=== PATIENT | female | born 1970 | race Caucasian/White ===

== ENCOUNTER 2023-03-25 11:36 | Observation (INO) | payer BC ==
[2023-03-25] MEDS ORDERED: SODIUM CHLORIDE 0.9% 500 ML 500 ML IV STA (11:42)
--- NOTE | 2023-03-25 11:51 | ED ---
General Adult HPI - General Stated complaint: chest pain Time Seen by Provider: 03/25/23 11:40 Source: patient, RN notes reviewed, old records reviewed - History of Present Illness Initial comments: This is a 52-year-old female who presents emergency department after having been to the primary medical care doctor. Patient comes in because she started experiencing chest pain in the center of her chest that radiates to her back per patient states it does hurt to deep breath and she thinks touching the area also makes her. Patient does describe it as a sharp pain but is been constant since she woke up this morning at 7:30. Patient denies any fever chills or cough. Patient denies abdominal pain patient denies any nausea vomiting diarrhea. Patient has lightheadedness or dizziness. Patient denies any dysuria hematuria urinary frequency. Patient denies swelling of the legs or calf tenderness - Related Data Home Medications Medication Instructions Recorded Confirmed Lipase/Protease/Amylase [Sarah Dr 3 cap PO TID-W/MEALS 03/25/23 03/25/23 36,000 Unit Capsule] amLODIPine [Norvasc] 10 mg PO DAILY 03/25/23 03/25/23 Allergies Allergy/AdvReac Type Severity Reaction Status Date / Time bee venom protein (honey bee) Allergy Anaphylaxis Verified 03/25/23 12:34 morphine Allergy MELVIN & Verified 03/25/23 12:34 Vomiting Review of Systems ROS Statement: Those systems with pertinent positive or pertinent negative responses have been documented in the HPI. ROS Other: All systems not noted in ROS Statement are negative. General Exam - General Exam Comments Initial Comments: GENERAL: Patient is well-developed and well-nourished. Patient is nontoxic and well- hydrated and is in mild distress. ENT: Neck is soft and supple. No significant lymphadenopathy is noted. Oropharynx is clear. Moist mucous membranes. Neck has full range of motion without eliciting any pain. EYES: The sclera were anicteric and conjunctiva were pink and moist. Extraocular movements were intact and pupils were equal round and reactive to light. Eyelids were unremarkable. PULMONARY: Unlabored respirations. Good breath sounds bilaterally. No audible rales rhonchi or wheezing was noted. CARDIOVASCULAR: There is a regular rate and rhythm without any murmurs gallops or rubs. Chest pain is reproducible. ABDOMEN: Soft and nontender with normal bowel sounds. SKIN: Skin is clear with no lesions or rashes and otherwise unremarkable. NEUROLOGIC: Patient is alert and oriented x3. Cranial nerves II through XII are grossly intact. Motor and sensory are also intact. Normal speech, volume and content. Symmetrical smile. MUSCULOSKELETAL: Normal extremities with adequate strength and full range of motion. LYMPHATICS: No significant lymphadenopathy is noted PSYCHIATRIC: Normal psychiatric evaluation. Course Vital Signs 03/25/23 03/25/23 11:38 11:44 Temperature 99.1 F Pulse Rate 107 H Respiratory 18 Rate Blood Pressure 171/98 O2 Sat by Pulse 97 96 Oximetry Medical Decision Making - Medical Decision Making EKG shows sinus tachycardia at 101 bpm AL interval 200 QRS is under 2 QT interval 348 QTC is 406. Patient has Q waves in inferior leads II, III, and F aVF there is no ST segment elevation. Was pt. sent in by a medical professional or institution (TIFFANY Raygoza, FRONT DESK ADMINISTRATOR, urgent care, hospital, or residential...) When possible be specific @ -Primary care center and to the hospital Did you speak to anyone other than the patient for history (EMS, parent, family, police, friend...)? What history was obtained from this source @ -I spoke with the physician election assistant at the primary care's office Did you review nursing and triage notes (agree or disagree)? Why? @ -[I reviewed and agree with nursing and triage notes] Were old charts reviewed (outside hosp., previous admission, EMS record, old EKG, old radiological studies, urgent care reports/EKG's, residential records)? Report findings @ -[No old charts were reviewed] Differential Diagnosis (chest pain, altered mental status, abdominal pain women, abdominal pain men, vaginal bleeding, weakness, fever, dyspnea, syncope, headache, dizziness, GI bleed, back pain, seizure, CVA, palpatations, mental health, musculoskeletal)? @ -Differential Chest Pain: Stable Angina, Unstable Angina, STEMI, NSTEMI Aortic Dissection, Pneumothorax, Musculoskeletal, Esophageal Spasm GERD, Cholecystitis, Pancreatitis, Zoster, this is not meant to be an all-inclusive list. EKG interpreted by me (3pts min.). @ -[As above] X-rays interpreted by me (1pt min.). @ -X-ray showed no acute abnormality CT interpreted by me (1pt min.). @ -[None done] U/S interpreted by me (1pt. min.). @ -[None done] What testing was considered but not performed or refused? (CT, X-rays, U/S, labs)? Why? @ -I considered doing a CT of the chest however patient's d-dimer was normal and she was not tachycardic while in the emergency department and her chest pain was reproducible. What meds were considered but not given or refused? Why? @ -[None] Did you discuss the management of the patient with other professionals (professionals i.e. , PA, FRONT DESK ADMINISTRATOR, lab, RT, psych nurse, outreach and education social worker, carriage dogger, teacher, radiation officer, case preparer and liner)? Give summary @ -I spoke with some physicians and they agreed to admit the patient admitted the patient wrote admitting orders Was smoking cessation discussed for >3mins.? @ -[No] Was critical care preformed (if so, how long)? @ -[No] Were there social determinants of health that impacted care today? How? (Homelessness, low income, unemployed, alcoholism, drug addiction, transportation, low edu. Level, literacy, decrease access to med. care, [facility], rehab)? @ -[No] Was there de-escalation of care discussed even if they declined (Discuss DNR or withdrawal of care, Hospice)? DNR status @ -[No] What co-morbidities impacted this encounter? (DM, HTN, Smoking, COPD, CAD, Cancer, CVA, ARF, Chemo, Hep., AIDS, mental health diagnosis, sleep apnea, morbid obesity)? @ -Hypertension Was patient admitted / discharged? Hospital course, mention meds given and route, prescriptions, significant lab abnormalities, going to OR and other pertinent info. @ -Patient continued to experience sharp chest pain that was reproducible in the emergency department. Patient's EKG did show Q waves in the inferior leads but the troponin was negative at this time. I spoke with some physicians agreed to admit the patient admitted the patient I consult cardiology and they ordered an echocardiogram Undiagnosed new problem with uncertain prognosis? @ -[No] Drug Therapy requiring intensive monitoring for toxicity (Heparin, Nitro, Insulin, Cardizem)? @ -[No] Were any procedures done? @ -[No] Diagnosis/symptom? @ -Chest pain Acute, or Chronic, or Acute on Chronic? @ -Acute Uncomplicated (without systemic symptoms) or Complicated (systemic symptoms)? @ -Complicated Side effects of treatment? @ -[No] Exacerbation, Progression, or Severe Exacerbation? @ -[No] Poses a threat to life or bodily function? How? (Chest pain, USA, MS, pneumonia, PE, COPD, DKA, ARF, appy, cholecystitis, CVA, Diverticulitis, Homicidal, Suicidal, threat to staff... and all critical care pts) @ -Yes this could lead to an MS to poor perfusion and end organ dysfunction - Lab Data Result diagrams: 03/25/23 11:52 03/25/23 11:52 Lab Results 03/25/23 03/25/23 03/25/23 Range/Units 11:52 11:52 11:52 WBC 17.0 H (3.8-10.6) k/uL RBC 4.76 (3.80-5.40) m/uL Hgb 12.8 (11.4-16.0) gm/dL Hct 38.5 (34.0-46.0) % MCV 80.9 (80.0-100.0) fL MCH 27.0 (25.0-35.0) pg MCHC 33.3 (31.0-37.0) g/dL RDW 13.8 (11.5-15.5) % Plt Count 313 (150-450) k/uL MPV 7.7 Neutrophils % 83 % Lymphocytes % 10 % Monocytes % 4 % Eosinophils % 2 % Basophils % 0 % Neutrophils # 14.1 H (1.3-7.7) k/uL Lymphocytes # 1.7 (1.0-4.8) k/uL Monocytes # 0.7 (0-1.0) k/uL Eosinophils # 0.3 (0-0.7) k/uL Basophils # 0.1 (0-0.2) k/uL PT 9.5 (9.0-12.0) sec INR 0.9 (<1.2) APTT 24.8 (22.0-30.0) sec D-Dimer 0.35 (<0.60) mg/L FEU Sodium 136 L (137-145) mmol/L Potassium 3.3 L (3.5-5.1) mmol/L Chloride 103 (98-107) mmol/L Carbon Dioxide 25 (22-30) mmol/L Anion Gap 8 mmol/L BUN 9 (7-17) mg/dL Creatinine 0.55 (0.52-1.04) mg/dL Est GFR (CKD-EPI)AfAm >90 (>60 ml/min/1.73 sqM) Est GFR (CKD-EPI)NonAf >90 (>60 ml/min/1.73 sqM) Glucose 100 H (74-99) mg/dL Calcium 9.0 (8.4-10.2) mg/dL Magnesium 2.0 (1.6-2.3) mg/dL Total Bilirubin 0.5 (0.2-1.3) mg/dL AST 21 (14-36) U/L ALT 15 (4-34) U/L Alkaline Phosphatase 92 (38-126) U/L Troponin I (0.000-0.034) ng/mL Total Protein 7.2 (6.3-8.2) g/dL Albumin 4.2 (3.5-5.0) g/dL Lipase 47 (23-300) U/L Influenza Type A (PCR) (Not Detectd) Influenza Type B (PCR) (Not Detectd) RSV (PCR) (Not Detectd) SARS-CoV-2 (PCR) (Not Detectd) 03/25/23 03/25/23 Range/Units 11:52 11:52 WBC (3.8-10.6) k/uL RBC (3.80-5.40) m/uL Hgb (11.4-16.0) gm/dL Hct (34.0-46.0) % MCV (80.0-100.0) fL MCH (25.0-35.0) pg MCHC (31.0-37.0) g/dL RDW (11.5-15.5) % Plt Count (150-450) k/uL MPV Neutrophils % % Lymphocytes % % Monocytes % % Eosinophils % % Basophils % % Neutrophils # (1.3-7.7) k/uL Lymphocytes # (1.0-4.8) k/uL Monocytes # (0-1.0) k/uL Eosinophils # (0-0.7) k/uL Basophils # (0-0.2) k/uL PT (9.0-12.0) sec INR (<1.2) APTT (22.0-30.0) sec D-Dimer (<0.60) mg/L FEU Sodium (137-145) mmol/L Potassium (3.5-5.1) mmol/L Chloride (98-107) mmol/L Carbon Dioxide (22-30) mmol/L Anion Gap mmol/L BUN (7-17) mg/dL Creatinine (0.52-1.04) mg/dL Est GFR (CKD-EPI)AfAm (>60 ml/min/1.73 sqM) Est GFR (CKD-EPI)NonAf (>60 ml/min/1.73 sqM) Glucose (74-99) mg/dL Calcium (8.4-10.2) mg/dL Magnesium (1.6-2.3) mg/dL Total Bilirubin (0.2-1.3) mg/dL AST (14-36) U/L ALT (4-34) U/L Alkaline Phosphatase (38-126) U/L Troponin I <0.012 (0.000-0.034) ng/mL Total Protein (6.3-8.2) g/dL Albumin (3.5-5.0) g/dL Lipase (23-300) U/L Influenza Type A (PCR) Not Detected (Not Detectd) Influenza Type B (PCR) Not Detected (Not Detectd) RSV (PCR) Not Detected (Not Detectd) SARS-CoV-2 (PCR) Not Detected (Not Detectd) Disposition Clinical Impression: Chest pain Disposition: ADMITTED IP TO THIS [facility] Referrals: Nonstaff,Physician [Primary Care Provider] - 1-2 days Time of Disposition: 13:28
[2023-03-25 12:03] LABS: Basophils # (A) 0.1 k/uL (0-0.2); Basophils % (A) 0 %; Eosinophils # (A) 0.3 k/uL (0-0.7); Eosinophils % (A) 2 %; HCT 38.5 % (34.0-46.0); HGB 12.8 gm/dL (11.4-16.0); Lymphocytes # (A) 1.7 k/uL (1.0-4.8); Lymphocytes % (A) 10 %; MCHC 33.3 g/dL (31.0-37.0); MCV 80.9 fL (80.0-100.0); Mean Platelet Volume 7.7; Monocytes # (A) 0.7 k/uL (0-1.0); Monocytes % (A) 4 %; Neutrophils # (A) 14.1 k/uL (1.3-7.7); Neutrophils % (A) 83 %; Platelet Count 313 k/uL (150-450); RBC 4.76 m/uL (3.80-5.40); RDW 13.8 % (11.5-15.5)
[2023-03-25 12:11] LABS: ALT 15 U/L (4-34); AST 21 U/L (14-36); African American GFR (CKD) >90 (>60 ml/min/1.73 sqM); Albumin 4.2 g/dL (3.5-5.0); Alkaline Phosphatase 92 U/L (38-126); Anion Gap 8 mmol/L; Blood Urea Nitrogen 9 mg/dL (7-17); Carbon Dioxide 25 mmol/L (22-30); Chloride 103 mmol/L (98-107); Glucose 100 mg/dL (74-99); Lipase 47 U/L (23-300); Non-African American GFR(CKD) >90 (>60 ml/min/1.73 sqM); Potassium 3.3 mmol/L (3.5-5.1); Sodium 136 mmol/L (137-145); Total Bilirubin 0.5 mg/dL (0.2-1.3); Total Protein 7.2 g/dL (6.3-8.2)
[2023-03-25 12:12] LABS: INR 0.9 (<1.2); Partial Thromboplastin Time 24.8 sec (22.0-30.0); Prothrombin Time 9.5 sec (9.0-12.0)
--- NOTE | 2023-03-25 12:17 | XR ---
EXAMINATION TYPE: XR chest 2V DATE OF EXAM: 03/25/2023 COMPARISON: NONE HISTORY: Chest pain TECHNIQUE: Frontal and lateral views of the chest are obtained. FINDINGS: There is no focal air space opacity, pleural effusion, or pneumothorax seen. The cardiac silhouette size is within normal limits. The osseous structures are intact. IMPRESSION: No acute cardiopulmonary process.
[2023-03-25] MEDS ORDERED: ACETAMINOPHEN TAB 325 MG TAB PO PRN (16:56)
[2023-03-25] MEDS ORDERED: POTASSIUM CHLORIDE ER 20 MEQ TAB.ER PO STA (16:56)
[2023-03-25] MEDS: LIPASE 20,000/PROTEASE 63,000/AMYLASE 84,000 PO SCH (17:01)
[2023-03-25] MEDS: NITROGLYCERIN SL TABS 0.4 MG TAB SUBLINGUAL PRN ×4 (17:01→20:54)
--- NOTE | 2023-03-25 17:49 | P.HPIM ---
History of Present Illness H&P Date: 03/25/23 Chief Complaint: Chest pain 52-year-old woman with medical history of hypertension, pancreatic insufficiency presented for chest pain. Patient says that she started to develop sharp sided chest pain that woke her up from sleep this morning at 7 in the morning. She says that she has radiation to the jaw as well as to the back of the head. She describes the pain as sharp in nature, cannot identify any exacerbating or alleviating symptoms. She denies fevers, chills. She does report nausea, but no emesis. She denies diaphoresis. She denies palpitations, syncope, pre syncope, cough. She reports associated dyspnea. She denies abdominal pain, constipation, diarrhea, dysuria, dyschezia, numbness/weakness of extremities. In the emergency room, patient was afebrile, 171/98, heart rate 107, 97% on room air. CBC demonstrates leukocytosis to 17, otherwise unremarkable. Basic metabolic panel shows sodium of 136, potassium of 3.3. Liver function tests are unremarkable. Lipase is 47. Troponin was some 0.012. Coags are unremarkable. D-dimer is 0.35. Inflows A, B, RSV, Covid are negative. EKG shows sinus tachycardia. T-wave inversions in lead 3, v6. Chest x-ray shows normal-sized heart with clear parenchyma. Case was discussed with emergency room provider decision was made to put the patient observation for chest pain. All Systems reviewed and pertinent positives and negatives noted in HPI, all other symptoms are negative Gen: in no apparent distress, resting comfortably in bed Eyes: PERRL, no scleral injection or icterus HENT: normocephalic, atraumatic, good hearing acuity, moist mucous membranes Neck: no tracheal deviation, full range of motion Resp: good air exchange, breathing comfortably with no accessory muscle use, no tactile fremitus, clear to auscultation bilaterally CVS: good distal perfusion x 4, no pitting edema, tachycardia without murmurs GI: soft, NTTP, ND, no hepatosplenomegaly : no suprapubic tenderness, no CVAT, wilkins catheter not present MSK: no clubbing, no cyanosis, no noted contractures of extremities Skin: no noted rashes, petechiae; temperature of skin is appropriate Neuro: moving all extremities without signs of weakness, CN II-XII intact Psych: cooperative, euthymic mood, insight and judgment intact Labs and imaging as above Assessment: Chest pain Hypertension Pancreatic insufficiency Plan: Vital signs reviewed and noted in the HPI Lab work reviewed and noted in the HPI EKG and CXR are personally interpreted and noted in the HPI Case was discussed with the Emergency Room provider and decision was made to admit the patient for chest pain Aspirin 81 mg daily Atorvastatin 80 mg at bedtime A1c, TSH, lipid panel Echocardiogram ordered Cardiology consulted Nitro 0.4 mg sublingual to try minutes when necessary Past Medical History Past Medical History: Hypertension Additional Past Medical History / Comment(s): Lupus, EPI History of Any Multi-Drug Resistant Organisms: None Reported, ESBL Date of last positivie culture/infection: 01/04/2023 MDRO Source:: E.Coli in urine Past Surgical History: Cholecystectomy Additional Past Surgical History / Comment(s): Mass removed from left nipple and right side of the neck. Past Anesthesia/Blood Transfusion Reactions: No Reported Reaction Past Psychological History: No Psychological Hx Reported Smoking Status: Never smoker Past Drug Use History: None Reported Medications and Allergies Home Medications Medication Instructions Recorded Confirmed Type Lipase/Protease/Amylase [Sarah Benites 3 cap PO TID-W/MEALS 03/25/23 03/25/23 History 36,000 Unit Capsule] amLODIPine [Norvasc] 10 mg PO DAILY 03/25/23 03/25/23 History Allergies Allergy/AdvReac Type Severity Reaction Status Date / Time bee venom protein (honey bee) Allergy Anaphylaxis Verified 03/25/23 12:34 morphine Allergy MELVIN & Verified 03/25/23 12:34 Vomiting Physical Exam Osteopathic Statement: *. No significant issues noted on an osteopathic structural exam other than those noted in the History and Physical/Consult. Vitals: Vital Signs Temp Pulse Pulse Resp BP BP Pulse Ox 03/25/23 15:54 98.2 F 100 18 155/79 97 03/25/23 15:01 98.8 F 100 19 145/69 96 03/25/23 11:44 96 03/25/23 11:38 99.1 F 107 H 18 171/98 97 Intake and Output 03/25/23 03/25/23 03/25/23 06:59 14:59 22:59 Other: Weight 48.534 kg 48.534 kg Results CBC & Chem 7: 03/25/23 11:52 03/25/23 11:52 Labs: Abnormal Lab Results - Last 24 Hours (Table) 03/25/23 03/25/23 Range/Units 11:52 11:52 WBC 17.0 H (3.8-10.6) k/uL Neutrophils # 14.1 H (1.3-7.7) k/uL Sodium 136 L (137-145) mmol/L Potassium 3.3 L (3.5-5.1) mmol/L Glucose 100 H (74-99) mg/dL Thrombosis Risk Factor Assmnt - Choose All That Apply Any of the Below Risk Factors Present?: Yes Each Factor Represents 1 point: Age 41-60 years Thrombosis Risk Factor Assessment Total Risk Factor Score: 1 Thrombosis Risk Factor Assessment Level: Low Risk
[2023-03-25] MEDS ORDERED: NITROGLYCERIN OINT 1 INCH/GM PACKET TOPICAL SCH (18:00)
[2023-03-25] MEDS ORDERED: ATORVASTATIN 80 MG TAB PO SCH (21:00)
[2023-03-25] MEDS ORDERED: HYDROmorphone 0.5 MG/0.5 ML SYRINGE IVP STA (22:05)
[2023-03-26] MEDS: LIPASE 20,000/PROTEASE 63,000/AMYLASE 84,000 PO SCH ×3 (06:31→17:08)
[2023-03-26] MEDS ORDERED: amLODIPine 10 MG TAB PO SCH (09:00)
[2023-03-26] MEDS ORDERED: ASPIRIN 81 MG PO SCH (09:00)
[2023-03-26] MEDS ORDERED: ASPIRIN 325 MG TAB PO SCH (09:00)
[2023-03-26 11:46] LABS: Basophils % (A) 0 %; Eosinophils # (A) 0.2 k/uL (0-0.7); Eosinophils % (A) 2 %; HCT 39.1 % (34.0-46.0); HGB 12.5 gm/dL (11.4-16.0); Lymphocytes # (A) 1.8 k/uL (1.0-4.8); Lymphocytes % (A) 13 %; MCH 26.6 pg (25.0-35.0); MCHC 31.8 g/dL (31.0-37.0); MCV 83.6 fL (80.0-100.0); Mean Platelet Volume 8.4; Monocytes # (A) 0.8 k/uL (0-1.0); Monocytes % (A) 6 %; Neutrophils # (A) 10.6 k/uL (1.3-7.7); Neutrophils % (A) 78 %; Platelet Count 307 k/uL (150-450); RBC 4.68 m/uL (3.80-5.40); RDW 13.9 % (11.5-15.5); WBC 13.7 k/uL (3.8-10.6)
[2023-03-26 11:55] LABS: African American GFR (CKD) >90 (>60 ml/min/1.73 sqM); Anion Gap 12 mmol/L; Blood Urea Nitrogen 11 mg/dL (7-17); Calcium 8.8 mg/dL (8.4-10.2); Carbon Dioxide 24 mmol/L (22-30); Chloride 100 mmol/L (98-107); Glucose 83 mg/dL (74-99); Magnesium 2.3 mg/dL (1.6-2.3); Non-African American GFR(CKD) >90 (>60 ml/min/1.73 sqM); Potassium 3.7 mmol/L (3.5-5.1); Sodium 136 mmol/L (137-145)
[2023-03-26 15:30] VITALS: BP 123/74; PULSE 87; RESP 18; TEMP 98.1
--- NOTE | 2023-03-26 16:32 | P.CRDCN ---
History of Present Illness Consult date: 03/26/23 Consult reason: chest pain History of present illness: History of present illness: Patient is a pleasant 52-year-old female with significant past medical history of hypertension, lupus, pancreatic insufficiency status post cholecystectomy who presented to the emergency department with complaints of chest pain. She does not follow with pedicurist. She denies any significant family history of heart disease. She does not smoke, drink alcohol, or use drugs. She reports 2 days ago she was having a headache and nausea. Then yesterday morning she woke up around 7 AM with sharp chest pain. She was unable to get comfortable and called her PCP for an inhaler. She was on at [facility] picking up her prescription 1 chest pain got worse she rates it as a 10 out of 10 and she went to an urgent care and was ultimately transferred to the emergency department. She reports she was having 10 out of 10 chest pain yesterday and throughout the night. She was getting sweaty and dizzy when she sat up to the bathroom overnight. She does report feeling a little better this morning with sharp chest pain a 5/10. The pain is worse with deep breathing or moving and radiates to her left neck. Nontender on exam. She denies any prior chest pain. She does report having a nuclear stress test approximately 5 or 6 years ago that was reportedly unrema rkable. Troponin negative 2, d-dimer negative. EKG shows normal sinus rhythm, normal axis, 84 bpm. Chest x-ray with no acute findings. Reports that her lupus has been stable and she has not had any issues for the past 3 years. She has reports having a history of leukocytosis in the past. No denies any recent fevers or chills. REVIEW OF SYSTEMS: No fever or chills. No cough or expectoration. No diaphoresis. Patient denies headache, dizziness, blurred vision, double vision. Patient denies any stomach discomfort. No nausea, vomiting. No hematochezia. No hematemesis. Denies any black stools or blood in his stools. Denies dysuria or hematuria. No muscle weakness or numbness. Reports chest pain. PHYSICAL EXAMINATION: This is a 52-year-old female in no apparent distress at the time of my examination. HEENT: Head is atraumatic, normocephalic. Pupils are equal, round. Sclerae anicteric. Conjunctivae are clear. Mucous membranes of the mouth are moist. Neck is supple. There is no jugular venous distention. No carotid bruit is heard. CHEST EXAMINATION: Lungs are clear to auscultation. No chest wall tenderness is noted on palpation. + Pain with deep breathing. HEART EXAMINATION: Heart regular rate and rhythm. S1, S2 heard. No murmurs, gallops or rub. ABDOMEN: Soft, nontender. Bowel sounds are heard. EXTREMITIES: 2+ peripheral pulses with no evidence of peripheral edema and no c group home tenderness noted. NEUROLOGIC EXAMINATION: Patient is awake, alert and oriented x3. IMPRESSION AND PLAN: Hypertension Chest pain, atypical, troponins negative. Lupus Leukocytosis PLAN: Troponins are negative, d-dimer was negative, and unlikely pleurisy, [place], or lupus flare. We will check echocardiogram to evaluate heart function and structure. If echo is unremarkable OK for discharge to home. Follow-up with Dr. Beth in the clinic in 1 week, we'll consider outpatient stress testing. I am dictating on behalf of Dr. Brendan Beth's history/physical and assessment/plan. Past Medical History Past Medical History: Hypertension Additional Past Medical History / Comment(s): Lupus, EPI History of Any Multi-Drug Resistant Organisms: None Reported, ESBL Date of last positivie culture/infection: 01/04/2023 MDRO Source:: E.Coli in urine Past Surgical History: Cholecystectomy Additional Past Surgical History / Comment(s): Mass removed from left nipple and right side of the neck. Past Anesthesia/Blood Transfusion Reactions: No Reported Reaction Past Psychological History: No Psychological Hx Reported Smoking Status: Never smoker Past Drug Use History: None Reported Medications and Allergies Home Medications Medication Instructions Recorded Confirmed Type Lipase/Protease/Amylase [Sarah Benites 3 cap PO TID-W/MEALS 03/25/23 03/25/23 History 36,000 Unit Capsule] amLODIPine [Norvasc] 10 mg PO DAILY 03/25/23 03/25/23 History Allergies Allergy/AdvReac Type Severity Reaction Status Date / Time bee venom protein (honey bee) Allergy Anaphylaxis Verified 03/25/23 12:34 morphine Allergy MELVIN & Verified 03/25/23 12:34 Vomiting Physical Exam Vitals: Vital Signs Temp Pulse Pulse Resp BP BP Pulse Ox 03/26/23 04:00 98.2 F 90 18 121/56 95 03/26/23 02:00 89 18 03/26/23 00:00 98.4 F 89 18 134/65 96 03/25/23 20:00 98.6 F 99 18 147/68 95 03/25/23 15:54 98.2 F 100 18 155/79 97 03/25/23 15:01 98.8 F 100 19 145/69 96 03/25/23 11:44 96 03/25/23 11:38 99.1 F 107 H 18 171/98 97 Intake and Output 03/25/23 03/26/23 03/26/23 22:59 06:59 14:59 Other: Voiding Method Toilet Toilet # Voids 1 0 Weight 48.534 kg Results 03/26/23 10:25 03/26/23 10:25 Cardiac Enzymes 03/25/23 03/25/23 Range/Units 11:52 11:52 AST 21 (14-36) U/L Troponin I <0.012 (0.000-0.034) ng/mL Coagulation 03/25/23 Range/Units 11:52 PT 9.5 (9.0-12.0) sec APTT 24.8 (22.0-30.0) sec CBC 03/25/23 Range/Units 11:52 WBC 17.0 H (3.8-10.6) k/uL RBC 4.76 (3.80-5.40) m/uL Hgb 12.8 (11.4-16.0) gm/dL Hct 38.5 (34.0-46.0) % Plt Count 313 (150-450) k/uL Comprehensive Metabolic Panel 03/25/23 Range/Units 11:52 Sodium 136 L (137-145) mmol/L Potassium 3.3 L (3.5-5.1) mmol/L Chloride 103 (98-107) mmol/L Carbon Dioxide 25 (22-30) mmol/L BUN 9 (7-17) mg/dL Creatinine 0.55 (0.52-1.04) mg/dL Glucose 100 H (74-99) mg/dL Calcium 9.0 (8.4-10.2) mg/dL AST 21 (14-36) U/L ALT 15 (4-34) U/L Alkaline Phosphatase 92 (38-126) U/L Total Protein 7.2 (6.3-8.2) g/dL Albumin 4.2 (3.5-5.0) g/dL Current Medications Generic Name Dose Route Start Last Admin Trade Name Freq PRN Reason Stop Dose Admin Acetaminophen 650 mg 03/25/23 16:56 Acetaminophen Tab 325 Mg Tab PO Q4HR PRN Fever and/ or Pain Amlodipine Besylate 10 mg 03/26/23 09:00 03/26/23 09:41 Amlodipine 10 Mg Tab PO 10 mg DAILY WADE Administration Lipase/Protease/Amylase 3 each 03/25/23 17:30 03/26/23 06:31 Lipase 20,000/Protease 63,000/Amylase 84,000 PO 3 each TID-W/MEALS WADE Administration Aspirin 81 mg 03/26/23 09:00 03/26/23 09:41 Aspirin 81 Mg PO 81 mg DAILY WADE Administration Atorvastatin Calcium 80 mg 03/25/23 21:00 03/25/23 21:58 Atorvastatin 80 Mg Tab PO 80 mg HS WADE Administration Nitroglycerin 0.4 mg 03/25/23 13:28 03/25/23 20:54 Nitroglycerin Sl Tabs 0.4 Mg Tab SUBLINGUAL 0.4 mg Q5M PRN Administration Chest Pain Intake and Output 03/25/23 03/26/23 03/26/23 22:59 06:59 14:59 Other: Voiding Method Toilet Toilet # Voids 1 0 Weight 48.534 kg 03/25/23 11:52 03/25/23 11:52
--- NOTE | 2023-03-26 16:49 | P.DS ---
Providers Date of admission: 03/25/23 13:28 Expected date of discharge: 03/26/23 Attending physician: Jacky Pond MD Consults: 03/25/23 13:28 Consult Physician Urgent Consulting Provider: [facility] Consult Reason/Comments: Chest pain Do you want consulting provider notified?: Yes Primary care physician: Physician Nonstaff Hospital Course: Assessment: Chest pain Hypertension Pancreatic insufficiency Hospital Course: 52-year-old woman with medical history of hypertension, pancreatic insufficiency presented for chest pain. In the emergency room, patient was afebrile, 171/98, heart rate 107, 97% on room air. CBC demonstrates leukocytosis to 17, otherwise unremarkable. Basic metabolic panel shows sodium of 136, potassium of 3.3. Liver function tests are unremarkable. Lipase is 47. Troponin was some 0.012. Coags are unremarkable. D-dimer is 0.35. Inflows A, B, RSV, Covid are negative. EKG shows sinus tachycardia. T-wave inversions in lead 3, v6. Chest x-ray shows normal-sized heart with clear parenchyma. Case was discussed with emergency room provider decision was made to put the patient observation for chest pain. Patient had troponins trended and these were negative. She was seen and evaluated by cardiology, who did an echocardiogram and cleared the patient for discharge. Patient should follow-up with her primary care physician upon discharge. Gen: in no apparent distress, resting comfortably in bed Eyes: PERRL, no scleral injection or icterus HENT: normocephalic, atraumatic, good hearing acuity, moist mucous membranes Neck: no tracheal deviation, full range of motion Resp: good air exchange, breathing comfortably with no accessory muscle use, no tactile fremitus, clear to auscultation bilaterally CVS: good distal perfusion x 4, no pitting edema, tachycardia without murmurs GI: soft, NTTP, ND, no hepatosplenomegaly : no suprapubic tenderness, no CVAT, wilkins catheter not present MSK: no clubbing, no cyanosis, no noted contractures of extremities Skin: no noted rashes, petechiae; temperature of skin is appropriate Neuro: moving all extremities without signs of weakness, CN II-XII intact Psych: cooperative, euthymic mood, insight and judgment intact Patient Condition at Discharge: Good Plan - Discharge Summary New Discharge Prescriptions: New Acetaminophen Tab [Tylenol] 650 mg PO Q4HR PRN tab PRN Reason: Fever And/ Or Pain Continue amLODIPine [Norvasc] 10 mg PO DAILY Lipase/Protease/Amylase [Sarah Benites 36,000 Unit Capsule] 3 cap PO TID-W/MEALS Discharge Medication List Lipase/Protease/Amylase [Sarah Benites 36,000 Unit Capsule] 3 cap PO TID-W/MEALS 03/25/23 [History] amLODIPine [Norvasc] 10 mg PO DAILY 03/25/23 [History] Acetaminophen Tab [Tylenol] 650 mg PO Q4HR PRN tab 03/26/23 [Rx] Follow up Appointment(s)/Referral(s): Nonstaff,Physician [Primary Care Provider] - 1-2 days Discharge Disposition: HOME SELF-CARE
--- NOTE | 2023-03-26 17:55 | CA ---
Transthoracic Echo Report Name: Angie Palmer Age: 52 Gender: F : 1970 Exam Date: 03/26/2023 12:17 Exam Location: [place] [facility] Ht (in): 62 Wt (lb): 175 Ordering Physician: Remi Cooper MD Attending/Referring Phys: Supervisor Calibration Teresa Hassan RDCS Procedure CPT: Indications: Chest Pain Cardiac Hx: Technical Quality: Fair Contrast 1: Total Dose (mL): Contrast 2: Total Dose (mL): MEASUREMENTS (Male / Female) Normal Values 2D ECHO LV Diastolic Diameter PLAX 3.6 cm 4.2 - 5.9 / 3.9 - 5.3 cm LV Systolic Diameter PLAX 1.7 cm IVS Diastolic Thickness 1.6 cm 0.6 - 1.0 / 0.6 - 0.9 cm LVPW Diastolic Thickness 1.3 cm 0.6 - 1.0 / 0.6 - 0.9 cm LV Relative Wall Thickness 0.8 RV Internal Dim ED PLAX 3.0 cm LA Volume 53.8 cm??? 18 - 58 / 22 - 52 cm??? M-MODE Aortic Root Diameter MM 2.5 cm LA Systolic Diameter MM 3.5 cm LA Ao Ratio MM 1.4 AV Cusp Separation MM 1.4 cm DOPPLER AV Peak Velocity 127.6 cm/s AV Peak Gradient 6.5 mmHg AV Mean Velocity 99.3 cm/s AV Mean Gradient 4.2 mmHg AV Velocity Time Integral 25.3 cm AI Peak Velocity 362.9 cm/s AI Peak Gradient 52.7 mmHg AI Pressure Half Time 657.8 ms LVOT Peak Velocity 117.5 cm/s LVOT Peak Gradient 5.5 mmHg LVOT Velocity Time Integral 24.5 cm MV Area PHT 4.5 cm??? Mitral E Point Velocity 93.8 cm/s Mitral A Point Velocity 116.5 cm/s Mitral E to A Ratio 0.8 MV Deceleration Time 168.5 ms MV E' Velocity 5.0 cm/s Mitral E to MV E' Ratio 18.9 TR Peak Velocity 288.8 cm/s TR Peak Gradient 33.4 mmHg Right Ventricular Systolic Press 38.4 mmHg FINDINGS Left Ventricle Moderately increased left ventricular wall thickness. Left ventricular cavity size normal. Normal left ventricular systolic function with no obvious regional wall motion abnormalities. Left ventricular ejection fraction is estimated at 55-60 %. Right Ventricle Normal right ventricular size and function. Right ventricular systolic pressure estimated at 38 mm hg. Right Atrium Normal right atrial size. Left Atrium Mildly increased left atrial volume. Mitral Valve Structurally normal mitral valve. Mild mitral annular calcification. Trace to mild mitral regurgitation. Aortic Valve Trileaflet aortic valve. No aortic stenosis. Trace aortic regurgitation. Tricuspid Valve Structurally normal tricuspid valve. Mild tricuspid regurgitation. Pulmonic Valve Trace pulmonic regurgitation. Pericardium No pericardial effusion. Aorta Normal size aortic root and proximal ascending aorta. CONCLUSIONS Moderately increased left ventricular thickness Left ventricular ejection fraction 55-60% RVSP 38 Trace to mild mitral regurgitation Mild tricuspid regurgitation No pericardial effusion Previewed by: Dr. Brendan Beth DO (Electronically Signed) Final Date: 26 March 2023 17:54
[2023-03-27 08:14] LABS: Chol/HDL Ratio 5.49 Ratio; LDL Cholesterol,Calculated 162.4 mg/dL (0.0-131.0)
== END 2023-03-26 19:00 | disposition home or self-care (01) ==
LOC: EC 11:36 → 3SCARD 13:28 → INTOOBSV 13:28 → 3SCARD 14:46 → UNDODISIN 03-26 19:00
PROVIDERS: ADMIT Student in an Organized Health Care Education/Training Program; ATTEND Student in an Organized Health Care Education/Training Program
DX: R07.89 Other chest pain (principal); I10 Essential (primary) hypertension; D72.829 Elevated white blood cell count, unspecified; R00.0 Tachycardia, unspecified; K86.89 Other specified diseases of pancreas; M32.9 Systemic lupus erythematosus, unspecified; I08.3 Combined rheumatic disorders of mitral, aortic and tricuspid valves; I37.1 Nonrheumatic pulmonary valve insufficiency; Z79.899 Other long term (current) drug therapy; Z88.5 Allergy status to narcotic agent; Z90.49 Acquired absence of other specified parts of digestive tract; Z20.822 Contact with and (suspected) exposure to COVID-19
CPT/HCPCS: 96374; 96361; 99285; 36415; 93005; 93306; 85379; 80061; 80053; 80048; 85652; 84443; 83690; 83735 ×2; 84484 ×2; 85025 ×2; 85610; 85730; 86140; 83036; 87636; 71046; G0378 ×2; J1170; 96360